=== PATIENT | female | born 1975 | race Two or more races ===

== ENCOUNTER 2019-04-30 09:02 | Emergency (ER) | payer OTHER, SELFPAY ==
[~2019-04-30] VITALS: Ht 165.1 cm; Wt 100.0 kg
[~2019-04-30 09:02] MED LIST: ACET500C4 PO; ARIP5TAB8 PO; CARI350T26 PO; FLUO20CA36 PO; LAMO25TA66 PO; NAPR-1175 PO; PROZAC
[2019-04-30 09:18] VITALS: BP 124/85
[2019-04-30 09:35] LABS: GLUCOSE,POINT OF CARE 76 MG/DL (70-110)
[2019-04-30] MEDS ORDERED: ACETAMINOPHEN 500 MG TABLET PO ONE (12:15)
== END 2019-04-30 12:51 | disposition home or self-care (01) ==
LOC: EMS 09:03
DX: R10.12 Left upper quadrant pain (principal); F20.9 Schizophrenia, unspecified; R23.4 Changes in skin texture; E11.9 Type 2 diabetes mellitus without complications; Z59.0 Homelessness; Z86.73 Personal history of transient ischemic attack (TIA), and cerebral infarction without residual deficits

== ENCOUNTER 2019-05-03 08:38 | Emergency (ER) | payer OTHER ==
[~2019-05-03] VITALS: Ht 167.6 cm; Wt 104.5 kg
[2019-05-03] MEDS ORDERED: LEVO150 PO (09:03)
[2019-05-03] MEDS ORDERED: CEPH125S23 PO (09:03)
[2019-05-03 12:19] LABS: BASOPHILS % (AUTO) 0.7 % (0.0-2.0); EOSINOPHILS % (AUTO) 2.1 % (1.0-6.0); HEMATOCRIT 26.6 % (36-46); HEMOGLOBIN 8.1 g/dL (12.0-16.0); LYMPHOCYTES # (AUTO) 1.8 K/uL (1.0-4.8); LYMPHOCYTES % (AUTO) 40.8 % (22.0-44.0); MEAN CORPUSCULAR HEMOGLOBIN 22.2 pg (26.0-34.0); MEAN CORPUSCULAR HGB CONC 30.5 G/dL (31.0-37.0); MEAN CORPUSCULAR VOLUME 73 fL (80-100); MONOCYTES # (AUTO) 0.3 K/uL (0.1-1.0); MONOCYTES % (AUTO) 5.8 % (2.0-9.0); NEUTROPHILS # (AUTO) 2.3 K/uL (1.8-7.7); NEUTROPHILS % (AUTO) 50.6 % (40.0-70.0); PLATELET COUNT (AUTO) 380 K/uL (150-450); RED BLOOD CELL COUNT(AUTO) 3.66 MIL/uL (4.00-5.20); RED CELL DISTRIBUTION WIDTH 20.8 % (11.5-14.5)
[2019-05-03 12:33] LABS: INR 1.1 (0.9-1.1); PROTHROMBIN TIME 10.7 SEC (9.4-11.6)
[2019-05-03 13:45] VITALS: BP 130/70
== END 2019-05-03 15:34 | disposition home or self-care (01) ==
LOC: EMS 08:40
DX: N92.0 Excessive and frequent menstruation with regular cycle (principal); L98.8 Other specified disorders of the skin and subcutaneous tissue; E11.9 Type 2 diabetes mellitus without complications; I10 Essential (primary) hypertension; F17.210 Nicotine dependence, cigarettes, uncomplicated; F11.90 Opioid use, unspecified, uncomplicated; Z79.899 Other long term (current) drug therapy; Z86.73 Personal history of transient ischemic attack (TIA), and cerebral infarction without residual deficits

== ENCOUNTER 2019-05-10 21:36 | Emergency (ER) | payer OTHER ==
[~2019-05-10] VITALS: Ht 162.6 cm; Wt 90.9 kg
[~2019-05-10 21:36] MED LIST changes: -ACET500C4 PO; -ARIP5TAB8 PO; -CARI350T26 PO; +CEPH125S23 PO; -FLUO20CA36 PO; -LAMO25TA66 PO; +LEVO150 PO; -NAPR-1175 PO; -PROZAC
[2019-05-11 04:05] VITALS: BP 154/57
== END 2019-05-11 05:31 | disposition home or self-care (01) ==
LOC: EMS 21:36
DX: F41.9 Anxiety disorder, unspecified (principal); F25.9 Schizoaffective disorder, unspecified; J06.9 Acute upper respiratory infection, unspecified; E11.9 Type 2 diabetes mellitus without complications; E03.9 Hypothyroidism, unspecified; F17.210 Nicotine dependence, cigarettes, uncomplicated; F16.90 Hallucinogen use, unspecified, uncomplicated
CPT/HCPCS: 99406

== ENCOUNTER 2019-05-11 16:53 | Emergency (ER) | payer OTHER ==
[~2019-05-11] VITALS: Ht 162.6 cm; Wt 128.6 kg
[2019-05-11 20:12] LABS: GLUCOSE,POINT OF CARE 104 MG/DL (70-110)
[2019-05-11 21:18] LABS: APPEARANCE,URINE CLEAR (CLEAR); BILIRUBIN,URINE NEGATIVE (NEGATIVE); GLUCOSE, URINE (UA) NEGATIVE (NEGATIVE); KETONES,URINE NEGATIVE (NEGATIVE); LEUKOCYTE ESTERASE ,URINE MODERATE (NEGATIVE); NITRATE,URINE NEGATIVE (NEGATIVE); OCCULT BLOOD,URINE SMALL (NEGATIVE); PROTEIN,URINE NEGATIVE (NEGATIVE)
[2019-05-11 21:24] LABS: AMPHET/METH SCREEN,URINE NEGATIVE (NEGATIVE); BARBITURATE SCREEN, URINE NEGATIVE (NEGATIVE); BENZODIAZEPINES SCREEN,URINE NEGATIVE (NEGATIVE); CANNABINOID SCREEN,URINE NEGATIVE (NEGATIVE); COCAINE SCREEN,URINE NEGATIVE (NEGATIVE); METHADONE SCREEN, URINE NEGATIVE (NEGATIVE); OPIATE SCREEN,URINE NEGATIVE (NEGATIVE); PHENCYCLIDINE SCREEN,URINE NEGATIVE (NEGATIVE)
[2019-05-11 21:40] LABS: BACTERIA,URINE Few /HPF (None Seen); SQUAMOUS EPITHELIAL CELL,UR Moderate /LPF (None Seen)
[2019-05-12] MEDS ORDERED: CEPHALEXIN MONOHYDRATE 500 MG CAPSULE PO ONE (03:30)
[2019-05-12] MEDS ORDERED: MetroNIDAZOLE 250 MG TABLET PO ONE (03:30)
[2019-05-12 05:09] VITALS: BP 125/71
== END 2019-05-12 05:18 | disposition home or self-care (01) ==
LOC: EMS 16:55
DX: J06.9 Acute upper respiratory infection, unspecified (principal); N39.0 Urinary tract infection, site not specified; A59.9 Trichomoniasis, unspecified; E11.9 Type 2 diabetes mellitus without complications; E03.9 Hypothyroidism, unspecified; F17.210 Nicotine dependence, cigarettes, uncomplicated; F11.90 Opioid use, unspecified, uncomplicated; Z59.0 Homelessness; Z79.899 Other long term (current) drug therapy
CPT/HCPCS: 87086; 99406

== ENCOUNTER 2019-05-16 04:14 | Emergency (ER) | payer OTHER ==
[~2019-05-16] VITALS: Ht 165.1 cm; Wt 127.3 kg
[2019-05-16 04:28] VITALS: BP 127/49
[2019-05-16 05:45] LABS: BASOPHILS % (AUTO) 0.8 % (0.0-2.0); EOSINOPHILS % (AUTO) 1.7 % (1.0-6.0); HEMATOCRIT 23.2 % (36-46); HEMOGLOBIN 7.3 g/dL (12.0-16.0); LYMPHOCYTES # (AUTO) 2.1 K/uL (1.0-4.8); LYMPHOCYTES % (AUTO) 37.2 % (22.0-44.0); MEAN CORPUSCULAR HEMOGLOBIN 22.2 pg (26.0-34.0); MEAN CORPUSCULAR HGB CONC 31.2 G/dL (31.0-37.0); MEAN CORPUSCULAR VOLUME 71 fL (80-100); MONOCYTES # (AUTO) 0.4 K/uL (0.1-1.0); MONOCYTES % (AUTO) 6.6 % (2.0-9.0); NEUTROPHILS # (AUTO) 3.1 K/uL (1.8-7.7); NEUTROPHILS % (AUTO) 53.7 % (40.0-70.0); PLATELET COUNT (AUTO) 305 K/uL (150-450); RED BLOOD CELL COUNT(AUTO) 3.26 MIL/uL (4.00-5.20); RED CELL DISTRIBUTION WIDTH 20.2 % (11.5-14.5)
[2019-05-16 05:55] LABS: ANION GAP 2 mmol/L (8-16); CALCIUM, TOTAL 8.1 mg/dL (8.8-10.5); CARBON DIOXIDE 30 mmol/L (22-29); CHLORIDE 107 mmol/L (98-107); GLOMERULAR FILTR. RATE CALC > 60 mL/min (>60); GLUCOSE,RANDOM 106 mg/dL (70-110); POTASSIUM 3.6 mmol/L (3.5-5.1); SODIUM SERUM 139 mmol/L (136-145); UREA NITROGEN, BLOOD 15 mg/dL (7-18)
[2019-05-16 06:01] LABS: ALANINE AMINOTRANSFERASE 41 U/L (12-78); ALBUMIN 2.7 g/dL (3.4-5.0); ALKALINE PHOSPHATASE 68 U/L (46-116); ASPARTATE AMINOTRANSFERASE 41 U/L (15-37); BILIRUBIN,TOTAL 0.2 mg/dL (0.1-1.0); TOTAL PROTEIN, SERUM 6.9 g/dL (6.4-8.2)
== END 2019-05-16 06:37 | disposition home or self-care (01) ==
LOC: EMS 04:16
DX: B34.9 Viral infection, unspecified (principal); J39.2 Other diseases of pharynx; E11.9 Type 2 diabetes mellitus without complications; E03.9 Hypothyroidism, unspecified; F17.210 Nicotine dependence, cigarettes, uncomplicated; Z86.73 Personal history of transient ischemic attack (TIA), and cerebral infarction without residual deficits

== ENCOUNTER 2019-05-17 09:39 | Emergency (ER) | payer OTHER ==
[~2019-05-17] VITALS: Ht 167.6 cm; Wt 100.0 kg
[2019-05-17 10:00] LABS: GLUCOSE,POINT OF CARE 73 MG/DL (70-110)
[2019-05-17] MEDS ORDERED: KETOROLAC TROMETHAMINE 60 MG/2 ML VIAL IM ONE (11:15)
[2019-05-17] MEDS ORDERED: GuaiFENesin SR 600 MG ER TABLET PO ONE (11:15)
[2019-05-17] MEDS ORDERED: ALBUTEROL SULFATE HFA 90 MCG/PUFF 8 GM INHALER IH ONE (11:30)
[2019-05-17 11:51] VITALS: BP 152/53
== END 2019-05-17 12:13 | disposition home or self-care (01) ==
LOC: EMS 09:42
DX: J40 Bronchitis, not specified as acute or chronic (principal); E11.9 Type 2 diabetes mellitus without complications; E03.9 Hypothyroidism, unspecified; F17.210 Nicotine dependence, cigarettes, uncomplicated; F15.90 Other stimulant use, unspecified, uncomplicated; F11.90 Opioid use, unspecified, uncomplicated; Z79.899 Other long term (current) drug therapy; Z86.73 Personal history of transient ischemic attack (TIA), and cerebral infarction without residual deficits
CPT/HCPCS: 82962; 94640; 96372; 99283; 99406; J1885; J3535

== ENCOUNTER 2019-05-18 03:23 | Emergency (ER) | payer OTHER ==
[~2019-05-18] VITALS: Ht 165.1 cm; Wt 131.8 kg
[2019-05-18] MEDS ORDERED: BENZONATATE 100 MG CAPSULE PO ONE (07:15)
[2019-05-18 09:45] VITALS: BP 120/71
== END 2019-05-18 10:31 | disposition home or self-care (01) ==
LOC: EMS 03:26
DX: J40 Bronchitis, not specified as acute or chronic (principal); E11.9 Type 2 diabetes mellitus without complications; E03.9 Hypothyroidism, unspecified; F17.210 Nicotine dependence, cigarettes, uncomplicated; F15.90 Other stimulant use, unspecified, uncomplicated; Z86.73 Personal history of transient ischemic attack (TIA), and cerebral infarction without residual deficits; Z79.899 Other long term (current) drug therapy

== ENCOUNTER 2019-05-21 19:49 | Emergency (ER) | payer OTHER ==
[~2019-05-21] VITALS: Ht 162.6 cm; Wt 129.1 kg
[2019-05-21 20:19] LABS: GLUCOSE,POINT OF CARE 75 MG/DL (70-110)
[2019-05-21 22:45] VITALS: BP 118/78
[2019-05-21] MEDS ORDERED: BENZONATATE 100 MG CAPSULE PO ONE (22:45)
== END 2019-05-21 23:46 | disposition home or self-care (01) ==
LOC: EMS 19:51
DX: J06.9 Acute upper respiratory infection, unspecified (principal); E11.9 Type 2 diabetes mellitus without complications; I10 Essential (primary) hypertension; F17.210 Nicotine dependence, cigarettes, uncomplicated; F13.10 Sedative, hypnotic or anxiolytic abuse, uncomplicated; F19.90 Other psychoactive substance use, unspecified, uncomplicated; Z86.73 Personal history of transient ischemic attack (TIA), and cerebral infarction without residual deficits

== ENCOUNTER 2019-05-23 01:40 | Emergency (ER) | payer OTHER ==
[~2019-05-23] VITALS: Ht 160 cm; Wt 104.5 kg
[2019-05-23 02:50] VITALS: BP 107/80
== END 2019-05-23 02:59 | disposition home or self-care (01) ==
LOC: EMS 01:41
DX: R05 Cough (principal); E11.9 Type 2 diabetes mellitus without complications; I10 Essential (primary) hypertension; E03.9 Hypothyroidism, unspecified; F17.210 Nicotine dependence, cigarettes, uncomplicated; F15.90 Other stimulant use, unspecified, uncomplicated; F11.90 Opioid use, unspecified, uncomplicated; Z86.73 Personal history of transient ischemic attack (TIA), and cerebral infarction without residual deficits

== ENCOUNTER 2019-05-24 20:48 | Emergency (ER) | payer OTHER ==
[~2019-05-24] VITALS: Ht 162.6 cm; Wt 113.6 kg
[2019-05-24] MEDS ORDERED: BENZONATATE 100 MG CAPSULE PO ONE (22:30)
[2019-05-24 23:00] VITALS: BP 128/73
== END 2019-05-24 23:15 | disposition home or self-care (01) ==
LOC: EMS 20:49
DX: R05 Cough (principal); E11.9 Type 2 diabetes mellitus without complications; I10 Essential (primary) hypertension; F17.210 Nicotine dependence, cigarettes, uncomplicated; F13.10 Sedative, hypnotic or anxiolytic abuse, uncomplicated; F19.90 Other psychoactive substance use, unspecified, uncomplicated; Z86.73 Personal history of transient ischemic attack (TIA), and cerebral infarction without residual deficits
CPT/HCPCS: 99406

== ENCOUNTER 2019-06-13 04:51 | Emergency (ER) | payer OTHER ==
[~2019-06-13] VITALS: Ht 165.1 cm; Wt 131.4 kg
[2019-06-13 08:25] LABS: ANION GAP 7 mmol/L (8-16); BASOPHILS % (AUTO) 0.5 % (0.0-2.0); CALCIUM, TOTAL 8.4 mg/dL (8.8-10.5); CARBON DIOXIDE 26 mmol/L (22-29); CHLORIDE 105 mmol/L (98-107); CREATININE 0.81 mg/dL (0.60-1.30); EOSINOPHILS % (AUTO) 1.4 % (1.0-6.0); GLOMERULAR FILTR. RATE CALC > 60 mL/min (>60); GLUCOSE,RANDOM 82 mg/dL (70-110); HEMATOCRIT 25.2 % (36-46); HEMOGLOBIN 7.7 g/dL (12.0-16.0); LYMPHOCYTES # (AUTO) 2.2 K/uL (1.0-4.8); LYMPHOCYTES % (AUTO) 34.6 % (22.0-44.0); MEAN CORPUSCULAR HEMOGLOBIN 21.5 pg (26.0-34.0); MEAN CORPUSCULAR HGB CONC 30.5 G/dL (31.0-37.0); MEAN CORPUSCULAR VOLUME 70 fL (80-100); MONOCYTES # (AUTO) 0.4 K/uL (0.1-1.0); MONOCYTES % (AUTO) 5.9 % (2.0-9.0); NEUTROPHILS # (AUTO) 3.6 K/uL (1.8-7.7); NEUTROPHILS % (AUTO) 57.6 % (40.0-70.0); PLATELET COUNT (AUTO) 411 K/uL (150-450); POTASSIUM 3.6 mmol/L (3.5-5.1); RED BLOOD CELL COUNT(AUTO) 3.58 MIL/uL (4.00-5.20); RED CELL DISTRIBUTION WIDTH 21.6 % (11.5-14.5); SODIUM SERUM 138 mmol/L (136-145); UREA NITROGEN, BLOOD 19 mg/dL (7-18)
[2019-06-13 08:30] LABS: ALANINE AMINOTRANSFERASE 18 U/L (12-78); ALBUMIN 2.8 g/dL (3.4-5.0); ALKALINE PHOSPHATASE 63 U/L (46-116); ASPARTATE AMINOTRANSFERASE 21 U/L (15-37); BILIRUBIN,TOTAL 0.2 mg/dL (0.1-1.0); THYROID STIMULATING HORMONE 66.05 uIU/mL (0.36-3.74); TOTAL PROTEIN, SERUM 7.4 g/dL (6.4-8.2)
[2019-06-13 09:15] VITALS: BP 115/68
== END 2019-06-13 10:34 | disposition home or self-care (01) ==
LOC: EMS 04:52
DX: D64.9 Anemia, unspecified (principal); E03.9 Hypothyroidism, unspecified; M79.10 Myalgia, unspecified site; E11.9 Type 2 diabetes mellitus without complications; I10 Essential (primary) hypertension; F17.210 Nicotine dependence, cigarettes, uncomplicated; F19.90 Other psychoactive substance use, unspecified, uncomplicated; F13.10 Sedative, hypnotic or anxiolytic abuse, uncomplicated
CPT/HCPCS: 84443

== ENCOUNTER 2019-09-15 02:06 | Emergency (ER) | payer OTHER ==
[~2019-09-15] VITALS: Ht 165.1 cm; Wt 131.4 kg
[2019-09-15 02:10] VITALS: BP 102/67
== END 2019-09-15 04:23 | disposition home or self-care (01) ==
LOC: EMS 02:06
DX: R05 Cough (principal); R11.10 Vomiting, unspecified; I10 Essential (primary) hypertension; E11.9 Type 2 diabetes mellitus without complications; E03.9 Hypothyroidism, unspecified; F17.210 Nicotine dependence, cigarettes, uncomplicated

== ENCOUNTER 2019-09-16 02:21 | Emergency (ER) | payer OTHER ==
[~2019-09-16] VITALS: Ht 165.1 cm; Wt 129.6 kg
[2019-09-16] MEDS ORDERED: SODIUM CHLORIDE 0.9% 1,000 ML IV ONE (02:45)
[2019-09-16 02:55] LABS: GLUCOSE,POINT OF CARE 67 MG/DL (70-110)
[2019-09-16 03:07] LABS: BASOPHILS % (AUTO) 0.8 % (0.0-2.0); EOSINOPHILS % (AUTO) 1.3 % (1.0-6.0); HEMATOCRIT 23.9 % (36-46); HEMOGLOBIN 7.4 g/dL (12.0-16.0); LYMPHOCYTES # (AUTO) 1.7 K/uL (1.0-4.8); LYMPHOCYTES % (AUTO) 32.8 % (22.0-44.0); MEAN CORPUSCULAR HEMOGLOBIN 21.8 pg (26.0-34.0); MEAN CORPUSCULAR HGB CONC 30.8 G/dL (31.0-37.0); MEAN CORPUSCULAR VOLUME 71 fL (80-100); MONOCYTES # (AUTO) 0.3 K/uL (0.1-1.0); MONOCYTES % (AUTO) 6.2 % (2.0-9.0); NEUTROPHILS # (AUTO) 3.1 K/uL (1.8-7.7); NEUTROPHILS % (AUTO) 58.9 % (40.0-70.0); PLATELET COUNT (AUTO) 335 K/uL (150-450); RED BLOOD CELL COUNT(AUTO) 3.38 MIL/uL (4.00-5.20); RED CELL DISTRIBUTION WIDTH 20.3 % (11.5-14.5)
[2019-09-16 03:14] LABS: ANION GAP 9 mmol/L (8-16); CALCIUM, TOTAL 8.2 mg/dL (8.8-10.5); CARBON DIOXIDE 28 mmol/L (22-29); CHLORIDE 106 mmol/L (98-107); CREATININE 0.84 mg/dL (0.60-1.30); GLOMERULAR FILTR. RATE CALC > 60 mL/min (>60); GLUCOSE,RANDOM 78 mg/dL (70-110); POTASSIUM 3.8 mmol/L (3.5-5.1); SODIUM SERUM 143 mmol/L (136-145); UREA NITROGEN, BLOOD 15 mg/dL (7-18)
[2019-09-16 03:26] LABS: ALANINE AMINOTRANSFERASE 32 U/L (12-78); ALBUMIN 3.3 g/dL (3.4-5.0); ALKALINE PHOSPHATASE 52 U/L (46-116); ASPARTATE AMINOTRANSFERASE 39 U/L (15-37); BILIRUBIN,TOTAL 0.3 mg/dL (0.1-1.0); HCG,QUANTITATIVE < 1 mIU/mL (0-6); TOTAL PROTEIN, SERUM 7.3 g/dL (6.4-8.2)
[2019-09-16 04:43] VITALS: BP 103/66
[2019-09-16 06:08] LABS: GLUCOSE,POINT OF CARE 79 MG/DL (70-110)
== END 2019-09-16 04:45 | disposition home or self-care (01) ==
LOC: EMS 02:21
DX: N92.0 Excessive and frequent menstruation with regular cycle (principal); D50.0 Iron deficiency anemia secondary to blood loss (chronic); E11.9 Type 2 diabetes mellitus without complications; I10 Essential (primary) hypertension; F17.210 Nicotine dependence, cigarettes, uncomplicated; F11.90 Opioid use, unspecified, uncomplicated; F19.90 Other psychoactive substance use, unspecified, uncomplicated; Z59.0 Homelessness; Z86.73 Personal history of transient ischemic attack (TIA), and cerebral infarction without residual deficits
CPT/HCPCS: 36415; 80053; 82962; 84702; 85025; 86850; 86900; 86901; 99283; J7030

== ENCOUNTER 2019-09-29 22:43 | Emergency (ER) | payer OTHER ==
[~2019-09-29] VITALS: Ht 162.6 cm; Wt 131.4 kg
[2019-09-29] MEDS ORDERED: LEVO50 PO (23:14)
[2019-09-30 03:12] VITALS: BP 115/57
== END 2019-09-30 03:16 | disposition home or self-care (01) ==
LOC: EMS 22:43
DX: M25.561 Pain in right knee (principal); M25.562 Pain in left knee; F20.9 Schizophrenia, unspecified; I10 Essential (primary) hypertension; E11.9 Type 2 diabetes mellitus without complications; E03.9 Hypothyroidism, unspecified; F15.90 Other stimulant use, unspecified, uncomplicated; F16.90 Hallucinogen use, unspecified, uncomplicated; F17.210 Nicotine dependence, cigarettes, uncomplicated

== ENCOUNTER 2019-10-17 23:29 | Emergency (ER) | payer MEDICAID, OTHER ==
[~2019-10-17] VITALS: Ht 162.6 cm; Wt 131.0 kg
[~2019-10-17 23:29] MED LIST changes: -CEPH125S23 PO; -LEVO150 PO; +LEVO50 PO
[2019-10-18] MEDS ORDERED: ACETAMINOPHEN 500 MG TABLET PO ONE
[2019-10-18] MEDS ORDERED: BACITRACIN 0.9 GM PACKET OINTMENT TP ONE
[2019-10-18 01:20] VITALS: BP 121/87
== END 2019-10-18 01:23 | disposition home or self-care (01) ==
LOC: EMS 23:31
DX: M79.671 Pain in right foot (principal); M79.672 Pain in left foot; E11.9 Type 2 diabetes mellitus without complications; I10 Essential (primary) hypertension; F19.90 Other psychoactive substance use, unspecified, uncomplicated; Z86.73 Personal history of transient ischemic attack (TIA), and cerebral infarction without residual deficits; F17.210 Nicotine dependence, cigarettes, uncomplicated

== ENCOUNTER 2020-01-19 05:08 | Emergency (ER) | payer MEDICAID, OTHER ==
[~2020-01-19] VITALS: Ht 167.6 cm; Wt 85.9 kg
[2020-01-19] MEDS ORDERED: IBUPROFEN 400 MG TABLET PO ONE (06:15)
[2020-01-19 07:55] LABS: COVID AG,FIA SOURCE NASOPHARYNGEAL
[2020-01-19 08:15] VITALS: BP 104/63
== END 2020-01-19 08:29 | disposition home or self-care (01) ==
LOC: EMS 05:08
DX: J02.9 Acute pharyngitis, unspecified (principal); I10 Essential (primary) hypertension; E11.9 Type 2 diabetes mellitus without complications; E03.9 Hypothyroidism, unspecified; F15.90 Other stimulant use, unspecified, uncomplicated; F17.210 Nicotine dependence, cigarettes, uncomplicated; Z20.828 Contact with and (suspected) exposure to other viral communicable diseases
CPT/HCPCS: 87426; 99283; C9803; U0003

== ENCOUNTER 2020-01-19 20:53 | Emergency (ER) | payer OTHER ==
[~2020-01-19] VITALS: Ht 167.6 cm; Wt 84.5 kg
[2020-01-19 23:13] LABS: BASOPHILS % (AUTO) 0.8 % (0.0-2.0); EOSINOPHILS % (AUTO) 2.3 % (1.0-6.0); HEMATOCRIT 25.2 % (36-46); HEMOGLOBIN 7.8 g/dL (12.0-16.0); LYMPHOCYTES # (AUTO) 1.8 K/uL (1.0-4.8); LYMPHOCYTES % (AUTO) 34.3 % (22.0-44.0); MEAN CORPUSCULAR HEMOGLOBIN 21.9 pg (26.0-34.0); MEAN CORPUSCULAR HGB CONC 31.1 G/dL (31.0-37.0); MEAN CORPUSCULAR VOLUME 70 fL (80-100); MONOCYTES # (AUTO) 0.3 K/uL (0.1-1.0); MONOCYTES % (AUTO) 4.9 % (2.0-9.0); NEUTROPHILS # (AUTO) 3.1 K/uL (1.8-7.7); NEUTROPHILS % (AUTO) 57.7 % (40.0-70.0); PLATELET COUNT (AUTO) 310 K/uL (150-450); RED BLOOD CELL COUNT(AUTO) 3.58 MIL/uL (4.00-5.20); RED CELL DISTRIBUTION WIDTH 21.8 % (11.5-14.5)
[2020-01-19 23:29] LABS: ALANINE AMINOTRANSFERASE 21 U/L (12-78); ALKALINE PHOSPHATASE 46 U/L (46-116); ANION GAP 8 mmol/L (8-16); ASPARTATE AMINOTRANSFERASE 19 U/L (15-37); BILIRUBIN,TOTAL 0.3 mg/dL (0.1-1.0); CALCIUM, TOTAL 8.1 mg/dL (8.8-10.5); CARBON DIOXIDE 28 mmol/L (22-29); CHLORIDE 104 mmol/L (98-107); GLOMERULAR FILTR. RATE CALC > 60 mL/min (>60); GLUCOSE,RANDOM 84 mg/dL (70-110); HCG,QUANTITATIVE 1 mIU/mL (0-6); LIPASE 320 U/L (73-393); POTASSIUM 3.1 mmol/L (3.5-5.1); SODIUM SERUM 140 mmol/L (136-145); TOTAL PROTEIN, SERUM 6.5 g/dL (6.4-8.2); UREA NITROGEN, BLOOD 17 mg/dL (7-18)
[2020-01-19 23:30] VITALS: BP 113/62
== END 2020-01-20 00:08 | disposition home or self-care (01) ==
LOC: EMS 20:53
DX: R42 Dizziness and giddiness (principal); F20.9 Schizophrenia, unspecified; I10 Essential (primary) hypertension; E03.9 Hypothyroidism, unspecified; E11.9 Type 2 diabetes mellitus without complications; F12.90 Cannabis use, unspecified, uncomplicated; F15.90 Other stimulant use, unspecified, uncomplicated; F17.210 Nicotine dependence, cigarettes, uncomplicated
CPT/HCPCS: 36415; 80053; 83690; 84484; 84702; 85025; 93005; 99284; 99406; G0480

== ENCOUNTER 2020-02-03 10:59 | Inpatient (IN) | payer MEDICAID, OTHER ==
[~2020-02-03] VITALS: Ht 167.6 cm; Wt 108.3 kg
[2020-02-03] MEDS ORDERED: DiphenhydrAMINE HCL 50 MG/ML VIAL ONE (11:41)
[2020-02-03] MEDS ORDERED: HALOPERIDOL LACTATE 5 MG/ML VIAL ONE (11:41)
[2020-02-03] MEDS ORDERED: LORazepam 2 MG/ML VIAL ONE (11:41)
[2020-02-03] MEDS ORDERED: HALOPERIDOL LACTATE 5 MG/ML VIAL IM ONE (11:45)
[2020-02-03] MEDS ORDERED: LORazepam 2 MG/ML VIAL IM ONE (11:45)
[2020-02-03] MEDS ORDERED: DiphenhydrAMINE HCL 50 MG/ML VIAL IM ONE (11:45)
[2020-02-03 12:16] LABS: BASOPHILS % (AUTO) 1.1 % (0.0-2.0); EOSINOPHILS % (AUTO) 2.9 % (1.0-6.0); HEMOGLOBIN 8.8 g/dL (12.0-16.0); LYMPHOCYTES # (AUTO) 1.7 K/uL (1.0-4.8); LYMPHOCYTES % (AUTO) 38.3 % (22.0-44.0); MEAN CORPUSCULAR HEMOGLOBIN 21.7 pg (26.0-34.0); MEAN CORPUSCULAR HGB CONC 31.3 G/dL (31.0-37.0); MEAN CORPUSCULAR VOLUME 69 fL (80-100); MONOCYTES # (AUTO) 0.3 K/uL (0.1-1.0); MONOCYTES % (AUTO) 6.5 % (2.0-9.0); NEUTROPHILS # (AUTO) 2.3 K/uL (1.8-7.7); NEUTROPHILS % (AUTO) 51.2 % (40.0-70.0); PLATELET COUNT (AUTO) 379 K/uL (150-450); RED BLOOD CELL COUNT(AUTO) 4.03 MIL/uL (4.00-5.20); RED CELL DISTRIBUTION WIDTH 20.5 % (11.5-14.5)
[2020-02-03 12:24] LABS: ANION GAP 11 mmol/L (8-16); CARBON DIOXIDE 24 mmol/L (22-29); CHLORIDE 102 mmol/L (98-107); CREATININE 1.18 mg/dL (0.60-1.30); GLUCOSE,RANDOM 112 mg/dL (70-110); POTASSIUM 3.4 mmol/L (3.5-5.1); SODIUM SERUM 137 mmol/L (136-145); UREA NITROGEN, BLOOD 24 mg/dL (7-18)
[2020-02-03 12:25] LABS: CALCIUM, TOTAL 8.7 mg/dL (8.8-10.5); GLOMERULAR FILTR. RATE CALC 50 mL/min (>60)
[2020-02-03 12:31] LABS: ALANINE AMINOTRANSFERASE 23 U/L (12-78); ALBUMIN 3.7 g/dL (3.4-5.0); ALKALINE PHOSPHATASE 53 U/L (46-116); ASPARTATE AMINOTRANSFERASE 25 U/L (15-37); BILIRUBIN,TOTAL 0.6 mg/dL (0.1-1.0); TOTAL PROTEIN, SERUM 8.2 g/dL (6.4-8.2)
[2020-02-03 14:05] LABS: COVID AG,FIA SOURCE NASOPHARYNGEAL
[2020-02-03] MEDS ORDERED: ZOLPIDEM TARTRATE 10 MG TABLET PO PRN (15:15)
[2020-02-03 18:22] VITALS: BP 122/56
[2020-02-03 18:44] LABS: GLUCOMETER DEV NAME(LOC) BV3S.; GLUCOSE,POINT OF CARE 103 MG/DL (70-110)
[2020-02-03] MEDS ORDERED: INFLUENZA VIRUS VACCINE QVS 2020-21 (6MO+)/PF 60 MCG/0.5 ML SYRINGE IM ONE (23:00)
[2020-02-03] MEDS ORDERED: PNEUMOCOCCAL VACCINE POLYVALENT 0.5 ML VIAL [PPSV23] IM ONE (23:00)
[2020-02-04 03:28] VITALS: BP 120/63
[2020-02-04] MEDS: LORazepam 2 MG TABLET PO PRN ×2 (08:49→16:48)
[2020-02-04 16:09] VITALS: BP 119/62
[2020-02-04] MEDS: RisperiDONE 1 MG TABLET PO SCH (20:09)
[2020-02-05 01:07] VITALS: BP 120/78
[2020-02-05 06:23] LABS: GLUCOMETER DEV NAME(LOC) BV3S.; GLUCOSE,POINT OF CARE 70 MG/DL (70-110)
[2020-02-05 08:18] VITALS: BP 119/59
[2020-02-05] MEDS: FERROUS SULFATE 325 MG EC TABLET PO SCH ×2 (12:40→16:10)
[2020-02-05 16:36] VITALS: BP 118/68
[2020-02-05] MEDS: RisperiDONE 1 MG TABLET PO SCH (20:08)
[2020-02-06 01:51] VITALS: BP 110/77
[2020-02-06 06:47] LABS: GLUCOMETER DEV NAME(LOC) BV3S.; GLUCOSE,POINT OF CARE 75 MG/DL (70-110)
[2020-02-06] MEDS: FERROUS SULFATE 325 MG EC TABLET PO SCH ×3 (07:01→15:51)
[2020-02-06 07:59] LABS: HEMOGLOBIN A1C 5.1 % (3.8-5.6)
[2020-02-06 08:12] VITALS: BP 106/72
[2020-02-06 08:18] LABS: THYROID STIMULATING HORMONE 66.67 uIU/mL (0.36-3.74)
[2020-02-06] MEDS: RisperiDONE 1 MG TABLET PO SCH ×2 (11:37→19:34)
[2020-02-06 16:33] VITALS: BP 100/64
[2020-02-06 17:24] LABS: GLUCOMETER DEV NAME(LOC) BV3S.; GLUCOSE,POINT OF CARE 94 MG/DL (70-110)
[2020-02-06 20:23] LABS: GLUCOMETER DEV NAME(LOC) BV3S.; GLUCOSE,POINT OF CARE 94 MG/DL (70-110)
[2020-02-07 01:26] VITALS: BP 102/74
[2020-02-07] MEDS: FERROUS SULFATE 325 MG EC TABLET PO SCH ×3 (06:17→16:41)
[2020-02-07 06:22] LABS: GLUCOMETER DEV NAME(LOC) BV3S.; GLUCOSE,POINT OF CARE 84 MG/DL (70-110)
[2020-02-07 08:19] VITALS: BP 110/72
[2020-02-07] MEDS: RisperiDONE 1 MG TABLET PO SCH ×2 (08:36→20:26)
[2020-02-07] MEDS: LEVOTHYROXINE SODIUM 100 MCG TABLET PO SCH (11:41)
[2020-02-07 16:05] VITALS: BP 112/79
[2020-02-07] MEDS: LORazepam 2 MG TABLET PO PRN (16:41)
[2020-02-07] MEDS ORDERED: MAG HYDROX/AL HYDROX/SIMETH ES 30 ML SUSPENSION UDCUP PO PRN ×2 (17:53→18:00)
[2020-02-07] MEDS ORDERED: LOPERAMIDE HCL 2 MG CAPSULE PO PRN (18:00)
[2020-02-07] MEDS ORDERED: IBUPROFEN 400 MG TABLET PO PRN (18:00)
[2020-02-07] MEDS ORDERED: CloNIDine HCL 0.1 MG TABLET PO PRN (18:00)
[2020-02-07] MEDS ORDERED: ACETAMINOPHEN 325 MG TABLET PO PRN (18:00)
[2020-02-07] MEDS ORDERED: MAGNESIUM HYDROXIDE SUSPENSION 30 ML UDCUP PO PRN (18:00)
[2020-02-07 18:40] LABS: GLUCOMETER DEV NAME(LOC) BV3S.; GLUCOSE,POINT OF CARE 119 MG/DL (70-110)
[2020-02-08 01:21] VITALS: BP 104/70
[2020-02-08] MEDS: LEVOTHYROXINE SODIUM 100 MCG TABLET PO SCH (06:25)
[2020-02-08] MEDS: FERROUS SULFATE 325 MG EC TABLET PO SCH ×3 (06:25→16:09)
[2020-02-08 06:37] LABS: GLUCOMETER DEV NAME(LOC) BV3S.; GLUCOSE,POINT OF CARE 76 MG/DL (70-110)
[2020-02-08 08:07] VITALS: BP 112/70
[2020-02-08] MEDS: RisperiDONE 1 MG TABLET PO SCH ×2 (09:06→20:31)
[2020-02-08] MEDS: LORazepam 2 MG TABLET PO PRN ×2 (10:12→16:09)
[2020-02-08] MEDS: HALOPERIDOL 5 MG TABLET PO PRN (13:24)
[2020-02-08 16:20] VITALS: BP 116/82
[2020-02-09 02:14] VITALS: BP 110/77
[2020-02-09] MEDS: LEVOTHYROXINE SODIUM 100 MCG TABLET PO SCH (06:09)
[2020-02-09] MEDS: FERROUS SULFATE 325 MG EC TABLET PO SCH ×3 (06:10→16:36)
[2020-02-09 08:14] VITALS: BP 119/70
[2020-02-09] MEDS: RisperiDONE 1 MG TABLET PO SCH ×2 (08:20→20:50)
[2020-02-09 16:12] VITALS: BP 122/66
[2020-02-10 01:22] VITALS: BP 118/77
[2020-02-10] MEDS: LEVOTHYROXINE SODIUM 100 MCG TABLET PO SCH (06:33)
[2020-02-10] MEDS: FERROUS SULFATE 325 MG EC TABLET PO SCH ×3 (06:33→17:00)
[2020-02-10 08:11] VITALS: BP 124/63
[2020-02-10] MEDS: RisperiDONE 1 MG TABLET PO SCH ×2 (08:28→21:00)
[2020-02-10] MEDS: LORazepam 2 MG TABLET PO PRN (12:55)
[2020-02-10] MEDS: HALOPERIDOL 5 MG TABLET PO PRN (12:56)
[2020-02-10] MEDS ORDERED: DiphenhydrAMINE HCL 50 MG/ML VIAL ONE (15:57)
[2020-02-10] MEDS ORDERED: LORazepam 2 MG/ML VIAL ONE (15:57)
[2020-02-10] MEDS ORDERED: HALOPERIDOL LACTATE 5 MG/ML VIAL ONE (15:57)
[2020-02-10] MEDS ORDERED: DiphenhydrAMINE HCL 50 MG/ML VIAL IM ONE (16:00)
[2020-02-10] MEDS ORDERED: HALOPERIDOL LACTATE 5 MG/ML VIAL IM ONE (16:00)
[2020-02-10] MEDS ORDERED: LORazepam 2 MG/ML VIAL IM ONE (16:00)
[2020-02-10 16:04] VITALS: BP 124/62
[2020-02-11 03:51] VITALS: BP 122/72
[2020-02-11] MEDS: FERROUS SULFATE 325 MG EC TABLET PO SCH ×3 (06:49→16:38)
[2020-02-11] MEDS: LEVOTHYROXINE SODIUM 100 MCG TABLET PO SCH (06:49)
[2020-02-11 08:19] VITALS: BP 120/76
[2020-02-11] MEDS ORDERED: LORazepam 2 MG/ML VIAL ONE (08:40)
[2020-02-11] MEDS ORDERED: DiphenhydrAMINE HCL 50 MG/ML VIAL ONE (08:41)
[2020-02-11] MEDS ORDERED: HALOPERIDOL LACTATE 5 MG/ML VIAL ONE (08:41)
[2020-02-11] MEDS ORDERED: LORazepam 2 MG/ML VIAL IM ONE (08:45)
[2020-02-11] MEDS ORDERED: HALOPERIDOL LACTATE 5 MG/ML VIAL IM ONE (08:45)
[2020-02-11] MEDS ORDERED: DiphenhydrAMINE HCL 50 MG/ML VIAL IM ONE (08:45)
[2020-02-11] MEDS: RisperiDONE 1 MG TABLET PO SCH ×2 (09:21→20:23)
[2020-02-11] MEDS ORDERED: MAGNESIUM CITRATE 300 ML ORAL SOLUTION PO ONE (10:15)
[2020-02-11] MEDS ORDERED: SODIUM PHOS/SODIUM BIPHOS 133 ML ENEMA PR ONE (10:30)
[2020-02-11] MEDS ORDERED: SENNA/DOCUSATE SODIUM 8.6-50 MG TABLET PO SCH (10:30)
[2020-02-11 16:13] VITALS: BP 124/70
[2020-02-12 00:18] VITALS: BP 122/76
[2020-02-12] MEDS: LEVOTHYROXINE SODIUM 100 MCG TABLET PO SCH (06:35)
[2020-02-12] MEDS: FERROUS SULFATE 325 MG EC TABLET PO SCH ×3 (06:35→16:51)
[2020-02-12] MEDS: HALOPERIDOL 5 MG TABLET PO PRN (08:47)
[2020-02-12] MEDS: RisperiDONE 1 MG TABLET PO SCH ×2 (08:47→20:07)
[2020-02-12] MEDS: LORazepam 2 MG TABLET PO PRN ×2 (08:47→15:14)
[2020-02-12 16:21] VITALS: BP 109/63
[2020-02-13 00:31] VITALS: BP 100/68
[2020-02-13] MEDS: LEVOTHYROXINE SODIUM 100 MCG TABLET PO SCH (06:31)
[2020-02-13] MEDS: FERROUS SULFATE 325 MG EC TABLET PO SCH ×3 (07:02→16:18)
[2020-02-13] MEDS: LORazepam 2 MG TABLET PO PRN ×2 (08:14→13:29)
[2020-02-13] MEDS: RisperiDONE 1 MG TABLET PO SCH ×2 (08:14→20:13)
[2020-02-13 08:26] VITALS: BP 127/65
[2020-02-13] MEDS: HALOPERIDOL 5 MG TABLET PO PRN (13:29)
[2020-02-13 16:00] VITALS: BP 116/81
[2020-02-14 01:55] VITALS: BP 119/67
[2020-02-14] MEDS: LEVOTHYROXINE SODIUM 100 MCG TABLET PO SCH (06:20)
[2020-02-14] MEDS: FERROUS SULFATE 325 MG EC TABLET PO SCH ×3 (06:20→16:01)
[2020-02-14 08:10] VITALS: BP 119/72
[2020-02-14] MEDS: LORazepam 2 MG TABLET PO PRN (09:07)
[2020-02-14] MEDS: HALOPERIDOL 5 MG TABLET PO PRN (09:07)
[2020-02-14] MEDS: RisperiDONE 1 MG TABLET PO SCH ×2 (09:07→20:51)
[2020-02-14 16:11] VITALS: BP 122/74
[2020-02-15 00:39] VITALS: BP 120/70
[2020-02-15] MEDS: FERROUS SULFATE 325 MG EC TABLET PO SCH ×3 (06:33→17:02)
[2020-02-15] MEDS: LEVOTHYROXINE SODIUM 100 MCG TABLET PO SCH (06:33)
[2020-02-15 08:22] VITALS: BP 107/59
[2020-02-15] MEDS: RisperiDONE 1 MG TABLET PO SCH (08:30)
[2020-02-15] MEDS: LORazepam 2 MG TABLET PO PRN (08:30)
[2020-02-15] MEDS ORDERED: LEVO125T95 PO (14:50)
[2020-02-15] MEDS ORDERED: RISP1TAB48 PO (14:50)
[2020-02-15] MEDS ORDERED: FERR-89 PO (14:50)
== END 2020-02-15 15:25 | disposition home or self-care (01) | DRG 750 ==
LOC: EMS 11:02 → B3A 16:05
PROVIDERS: ADMIT Psychiatry & Neurology Child & Adolescent Psychiatry; ATTEND Psychiatry & Neurology Child & Adolescent Psychiatry
DX: F20.0 Paranoid schizophrenia (principal); Z59.0 Homelessness; E11.9 Type 2 diabetes mellitus without complications; I10 Essential (primary) hypertension; E03.9 Hypothyroidism, unspecified; Z86.73 Personal history of transient ischemic attack (TIA), and cerebral infarction without residual deficits; D64.9 Anemia, unspecified; F15.90 Other stimulant use, unspecified, uncomplicated; E87.6 Hypokalemia; I95.9 Hypotension, unspecified; F17.210 Nicotine dependence, cigarettes, uncomplicated; F12.90 Cannabis use, unspecified, uncomplicated; Z20.828 Contact with and (suspected) exposure to other viral communicable diseases; Z28.21 Immunization not carried out because of patient refusal
CPT/HCPCS: 83036; 84439; 84443; 87426; 90686; 90732; G0480; J1200; J1630; J2060

== ENCOUNTER 2020-02-20 11:47 | Inpatient (IN) | payer MEDICAID, OTHER ==
[~2020-02-20] VITALS: Ht 160 cm; Wt 111.9 kg
[~2020-02-20 11:47] MED LIST changes: +FERR-89 PO; +LEVO125T95 PO; -LEVO50 PO; +RISP1TAB48 PO
[2020-02-20 12:40] LABS: BASOPHILS % (AUTO) 0.6 % (0.0-2.0); HEMATOCRIT 28.5 % (36-46); LYMPHOCYTES # (AUTO) 1.7 K/uL (1.0-4.8); LYMPHOCYTES % (AUTO) 32.9 % (22.0-44.0); MEAN CORPUSCULAR HEMOGLOBIN 24.3 pg (26.0-34.0); MEAN CORPUSCULAR HGB CONC 31.5 G/dL (31.0-37.0); MEAN CORPUSCULAR VOLUME 77 fL (80-100); MONOCYTES # (AUTO) 0.4 K/uL (0.1-1.0); MONOCYTES % (AUTO) 6.8 % (2.0-9.0); NEUTROPHILS % (AUTO) 56.7 % (40.0-70.0); PLATELET COUNT (AUTO) 317 K/uL (150-450); RED BLOOD CELL COUNT(AUTO) 3.69 MIL/uL (4.00-5.20); RED CELL DISTRIBUTION WIDTH 30.6 % (11.5-14.5)
[2020-02-20 13:00] LABS: ANION GAP 10 mmol/L (8-16); CALCIUM, TOTAL 8.5 mg/dL (8.8-10.5); CARBON DIOXIDE 26 mmol/L (22-29); CHLORIDE 104 mmol/L (98-107); CREATININE 0.76 mg/dL (0.60-1.30); GLOMERULAR FILTR. RATE CALC > 60 mL/min (>60); GLUCOSE,RANDOM 91 mg/dL (70-110); POTASSIUM 3.1 mmol/L (3.5-5.1); SODIUM SERUM 140 mmol/L (136-145); UREA NITROGEN, BLOOD 20 mg/dL (7-18)
[2020-02-20 13:15] LABS: ALANINE AMINOTRANSFERASE 27 U/L (12-78); ALBUMIN 3.3 g/dL (3.4-5.0); ALKALINE PHOSPHATASE 61 U/L (46-116); ASPARTATE AMINOTRANSFERASE 31 U/L (15-37); BILIRUBIN,TOTAL 0.5 mg/dL (0.1-1.0); FREE T4 (FREE THYROXINE) 0.57 ng/dL (0.76-1.46); HCG,QUANTITATIVE < 1 mIU/mL (0-6); THYROID STIMULATING HORMONE 30.66 uIU/mL (0.36-3.74); TOTAL PROTEIN, SERUM 7.3 g/dL (6.4-8.2)
[2020-02-20] MEDS ORDERED: POTASSIUM CHLORIDE 20 MEQ ER TABLET PO ONE ×2 (14:30→21:30)
[2020-02-20] MEDS ORDERED: HALOPERIDOL LACTATE 5 MG/ML VIAL IM ONE (15:00)
[2020-02-20] MEDS ORDERED: LORazepam 2 MG/ML VIAL IM ONE (15:00)
[2020-02-20] MEDS ORDERED: LEVOTHYROXINE SODIUM 25 MCG TABLET PO ONE (15:00)
[2020-02-20] MEDS ORDERED: ZOLPIDEM TARTRATE 10 MG TABLET PO PRN (15:15)
[2020-02-20 17:04] LABS: AMPHET/METH SCREEN,URINE POSITIVE (NEGATIVE); BARBITURATE SCREEN, URINE NEGATIVE (NEGATIVE); BENZODIAZEPINES SCREEN,URINE NEGATIVE (NEGATIVE); CANNABINOID SCREEN,URINE NEGATIVE (NEGATIVE); COCAINE SCREEN,URINE NEGATIVE (NEGATIVE); METHADONE SCREEN, URINE NEGATIVE (NEGATIVE); OPIATE SCREEN,URINE NEGATIVE (NEGATIVE)
[2020-02-20 17:05] LABS: PHENCYCLIDINE SCREEN,URINE NEGATIVE (NEGATIVE)
[2020-02-20 17:59] LABS: COVID AG,FIA SOURCE NASOPHARYNGEAL
[2020-02-20 20:13] VITALS: BP 107/68
[2020-02-20 21:26] LABS: GLUCOMETER DEV NAME(LOC) BV3S.; GLUCOSE,POINT OF CARE 82 MG/DL (70-110)
[2020-02-21 00:14] VITALS: BP 104/62
[2020-02-21] MEDS: LEVOTHYROXINE SODIUM 100 MCG TABLET PO SCH (06:27)
[2020-02-21] MEDS ORDERED: DOCUSATE SODIUM 100 MG CAPSULE PO PRN (07:45)
[2020-02-21] MEDS ORDERED: LOPERAMIDE HCL 2 MG CAPSULE PO PRN (07:45)
[2020-02-21] MEDS ORDERED: ONDANSETRON HCL 4 MG TABLET PO PRN (07:45)
[2020-02-21] MEDS ORDERED: CloNIDine HCL 0.1 MG TABLET PO PRN (07:45)
[2020-02-21] MEDS ORDERED: GuaiFENesin/D-METHORPHAN [SUGAR-FREE] 200-20MG/10 ML SYRUP UDCUP PO PRN (07:45)
[2020-02-21] MEDS ORDERED: PETROLATUM,WHITE 28 GM JELLY TP PRN (07:45)
[2020-02-21] MEDS ORDERED: NICOTINE 14 MG/24 HOUR PATCH TD PRN (07:45)
[2020-02-21] MEDS ORDERED: ALBUTEROL SULFATE HFA 90 MCG/PUFF 8 GM INHALER IH PRN (07:45)
[2020-02-21] MEDS ORDERED: MAGNESIUM HYDROXIDE SUSPENSION 30 ML UDCUP PO PRN (07:45)
[2020-02-21] MEDS ORDERED: MAG HYDROX/AL HYDROX/SIMETH ES 30 ML SUSPENSION UDCUP PO PRN (07:45)
[2020-02-21] MEDS ORDERED: ACETAMINOPHEN 325 MG TABLET PO PRN (07:45)
[2020-02-21] MEDS ORDERED: IBUPROFEN 400 MG TABLET PO PRN (07:45)
[2020-02-21 10:30] VITALS: BP 131/68
[2020-02-21] MEDS: LORazepam 2 MG TABLET PO PRN (10:36)
[2020-02-21] MEDS: FERROUS SULFATE 325 MG EC TABLET PO SCH ×3 (11:53→17:38)
[2020-02-21 16:02] VITALS: BP 118/55
[2020-02-21] MEDS: RisperiDONE 2 MG TABLET PO SCH ×2 (16:05→17:38)
[2020-02-21 22:37] LABS: COVID AG,FIA SOURCE NASOPHARYNGEAL
[2020-02-22 04:55] VITALS: BP 120/72
[2020-02-22] MEDS: LEVOTHYROXINE SODIUM 100 MCG TABLET PO SCH (06:35)
[2020-02-22] MEDS: FERROUS SULFATE 325 MG EC TABLET PO SCH ×3 (06:35→16:56)
[2020-02-22 08:19] VITALS: BP 105/64
[2020-02-22] MEDS: RisperiDONE 2 MG TABLET PO SCH ×2 (11:45→16:56)
[2020-02-22 16:03] VITALS: BP 113/69
[2020-02-23 04:46] VITALS: BP 108/95
[2020-02-23] MEDS: LEVOTHYROXINE SODIUM 100 MCG TABLET PO SCH (06:55)
[2020-02-23] MEDS: FERROUS SULFATE 325 MG EC TABLET PO SCH ×3 (06:55→16:24)
[2020-02-23] MEDS: RisperiDONE 2 MG TABLET PO SCH ×2 (08:01→16:24)
[2020-02-23 08:03] VITALS: BP 107/60
[2020-02-23 16:03] VITALS: BP 105/68
[2020-02-23] MEDS: LORazepam 2 MG TABLET PO PRN (17:48)
[2020-02-24 04:17] VITALS: BP 114/65
[2020-02-24] MEDS: LEVOTHYROXINE SODIUM 100 MCG TABLET PO SCH (06:45)
[2020-02-24] MEDS: FERROUS SULFATE 325 MG EC TABLET PO SCH ×3 (06:45→16:35)
[2020-02-24 08:11] VITALS: BP 122/52
[2020-02-24] MEDS: RisperiDONE 2 MG TABLET PO SCH ×2 (08:40→16:34)
[2020-02-24] MEDS: LORazepam 2 MG TABLET PO PRN ×2 (11:07→15:14)
[2020-02-24] MEDS: HALOPERIDOL 5 MG TABLET PO PRN (13:10)
[2020-02-24 16:13] VITALS: BP 108/58
[2020-02-25 05:01] VITALS: BP 110/68
[2020-02-25] MEDS: FERROUS SULFATE 325 MG EC TABLET PO SCH ×2 (06:51→11:38)
[2020-02-25] MEDS: LEVOTHYROXINE SODIUM 100 MCG TABLET PO SCH (06:51)
[2020-02-25] MEDS: RisperiDONE 2 MG TABLET PO SCH (08:18)
[2020-02-25 10:49] VITALS: BP 128/75
[2020-02-25] MEDS: HALOPERIDOL 5 MG TABLET PO PRN (12:49)
[2020-02-25] MEDS: LORazepam 2 MG TABLET PO PRN (12:49)
[2020-02-25] MEDS ORDERED: RISP2TAB45 PO (13:59)
== END 2020-02-25 15:30 | disposition home or self-care (01) | DRG 750 ==
LOC: EMS 11:47 → B3A 15:03 → B2S 02-21 15:58
PROVIDERS: ADMIT Psychiatry & Neurology Psychiatry; ATTEND Psychiatry & Neurology Child & Adolescent Psychiatry
DX: F20.9 Schizophrenia, unspecified (principal); R45.851 Suicidal ideations; D64.9 Anemia, unspecified; E03.9 Hypothyroidism, unspecified; E11.9 Type 2 diabetes mellitus without complications; E87.6 Hypokalemia; F12.90 Cannabis use, unspecified, uncomplicated; F17.210 Nicotine dependence, cigarettes, uncomplicated; I10 Essential (primary) hypertension; Z20.828 Contact with and (suspected) exposure to other viral communicable diseases; Z59.0 Homelessness; Z86.73 Personal history of transient ischemic attack (TIA), and cerebral infarction without residual deficits; Z91.14 Patient's other noncompliance with medication regimen
CPT/HCPCS: 84132; 84439; 84443; 87426; G0480; J1630; J2060

== ENCOUNTER 2020-05-30 08:15 | Emergency (ER) | payer MEDICAID, OTHER ==
[~2020-05-30] VITALS: Ht 170.2 cm; Wt 90.9 kg
[~2020-05-30 08:15] MED LIST changes: -FERR-89 PO; -LEVO125T95 PO; -RISP1TAB48 PO; +RISP2TAB45 PO
[2020-05-30 08:29] VITALS: BP 106/71
== END 2020-05-30 10:41 | disposition left against medical advice (07) ==
LOC: EDUNIT# 08:15 → EMS 08:21
DX: J02.9 Acute pharyngitis, unspecified (principal); Z53.21 Procedure and treatment not carried out due to patient leaving prior to being seen by health care provider